=== PATIENT | female | born 1970 | race African-American/Black ===

== ENCOUNTER 2017-11-16 21:25 | Emergency (ER) | payer OTHER ==
[~2017-11-16] VITALS: Ht 160 cm; Wt 71.2 kg
[2017-11-16 21:48] VITALS: BP 105/62
[2017-11-16 22:03] VITALS: BP 105/62
--- NOTE | 2017-11-16 22:45 | Emergency Room Report ---
History of Present Illness General Chief Complaint: Syncope Source: EMS Present Illness HPI 47-year-old female presents ED for evaluation. Patient brought in by EMS for syncopal episode. at bedside states that patient was feeling dizzy at dinner tonight at a restaurant. Patient did pass out but did not hit her head. Upon arrival patient states she feels fine. Patient states for the last few days she's been experiencing flulike symptoms. Cough with yellowish phlegm. Body aches and chills. Not drinking a lot of water. Did drink some alcohol tonight. Denies chest pain or shortness of breath. Denies any cardiac history. Denies any drug use. No other aggravating or relieving factors. Denies any other associated symptoms Allergies: Coded Allergies: No Known Allergies (Unverified , 11/16/17) Patient History Past Medical History: none Past Surgical History: none Pertinent Family History: none Social History: Denies: smoking, alcohol use, drug use Now: No Immunizations: UTD Reviewed Nursing Documentation: PMH: Agreed, PSxH: Agreed Nursing Documentation-PMH Past Medical History: No Stated History Review of Systems All Other Systems: negative except mentioned in HPI Physical Exam Vital Signs Date Time Temp Pulse Resp B/P (MAP) Pulse Ox O2 Delivery O2 Flow Rate FiO2 11/16/17 21:20 97.8 84 16 105/62 100 Room Air 97.9 Sp02 EP Interpretation: reviewed, normal General Appearance: no apparent distress, alert, GCS 15, non-toxic Head: normocephalic, atraumatic Eyes: bilateral eye normal inspection, bilateral eye PERRL ENT: hearing grossly normal, normal pharynx, no angioedema, normal voice Neck: full range of motion, supple/symm/no masses Respiratory: chest non-tender, lungs clear, normal breath sounds, speaking full sentences Cardiovascular #1: regular rate, rhythm, no edema Cardiovascular #2: 2+ carotid (R), 2+ carotid (L), 2+ radial (R), 2+ radial (L) , 2+ dorsalis pedis (R), 2+ dorsalis pedis (L) Gastrointestinal: normal bowel sounds, non tender, soft, non-distended, no guarding, no rebound Rectal: deferred Genitourinary: normal inspection, no CVA tenderness Musculoskeletal: back normal, gait/station normal, normal range of motion, non- tender Neurologic: alert, oriented x3, responsive, motor strength/tone normal, sensory intact, speech normal Psychiatric: judgement/insight normal, memory normal, mood/affect normal, no suicidal/homicidal ideation Reflexes: 3+ bicep (R), 3+ bicep (L), 3+ tricep (R), 3+ tricep (L), 3+ knee (R) , 3+ knee (L) Skin: normal color, no rash, warm/dry, well hydrated Lymphatic: no adenopathy Medical Decision Making Diagnostic Impression: Primary Impression: Syncope Qualified Codes: R55 - Syncope and collapse ER Course Hospital Course 47 year-old male presents ED s/p syncopal episode. no complaints now Differential diagnoses include: arrythmia, dehydration, ACS/MO Clinical course Patient placed on stretcher. on monitor tech. After initial history, physical exam reveals a middle-aged female in no acute distress. Lungs clear. Heart normal auscultation. Remainder of physical exam unremarkable Given the patient has no risk factors, has been expressing flulike symptoms recently and drank alcohol tonight I do not see the reason for an extensive cardiac workup. Patient and agree They did agree to EKG EKGnormal sinus rhythm no acute ischemic changes interpreted by me Discussed findings with patient. I believe patient can be safely discharged to home. Recommend close follow-up with PMD I. I feel this is a highly complex case requiring extensive working including EKG/Rhythm strip, Xray/CT/US, Blood/urine lab work, repeat exams while in ED, and administration of strong opiates/narcotics for pain control, admission to hospital or close patient follow up. Diagnosis - syncope Stable and discharged to home. Followup with PMD. Return to ED if symptoms recur or worsen EKG Diagnostic Results Rate: normal Rhythm: NSR ST Segments: no acute changes ASA given to the pt in ED: No Rhythm Strip Diag. Results EP Interpretation: yes Rhythm: NSR, no PVC's, no ectopy Last Vital Signs Date Time Temp Pulse Resp B/P (MAP) Pulse Ox O2 Delivery O2 Flow Rate FiO2 11/16/17 22:03 97.9 84 16 105/62 100 Room Air 97.9 Status: improved Disposition: HOME, SELF-CARE Condition: Stable Referrals: NOT CHOSEN IPA/MD,REFERRING (PCP) Patient Instructions: Dehydration, Adult, [id number] LORENZO KUMARI M.D. Nov 16, 2017 22:45
--- NOTE | 2017-11-17 16:08 | Cardiology Report ---
APPROVED REPORT EKG Measurement Heart [id number] Normal sinus rhythm Cannot rule out Anterior infarct, age undetermined Abnormal ECG
== END 2017-11-16 22:03 | disposition home or self-care (01) ==
LOC: EDBD 21:25 → EMR 21:52
DX: R55 Syncope and collapse (principal)
CPT/HCPCS: 93005; 99283